=== PATIENT | female | born 1955 | race American Indian/Alaskan Native ===

== ENCOUNTER 2018-04-27 09:35 | Outpatient (REF) | payer MEDICAID, SELFPAY ==
[2018-04-27 19:29] LABS: Cholesterol 187 mg/dL (50-200); HDL Cholesterol 38 mg/dL (40-60); LDL CHOLESTEROL 127 mg/dL (<100); Triglyceride 194 mg/dL (30-150)
[2018-04-29 10:40] LABS: Thyroglobulin Antibody 252 U/mL (<61); Thyroperoxidase Antibody >1300 U/mL (<61)
== END 2018-04-27 09:36 ==
LOC: NCHCN 09:35
PROVIDERS: PCP Nurse Practitioner Family; Visit Provider Nurse Practitioner Family
DX: E78.5 Hyperlipidemia, unspecified (principal); E03.9 Hypothyroidism, unspecified
CPT/HCPCS: 80061; 83721; 86376

== ENCOUNTER 2018-07-02 09:20 | Outpatient (RCR) | payer SELFPAY ==
--- NOTE | 2018-07-03 15:43 | COCO.CNN ---
Primary Reason for Visit Insurance Referral to Care Coordination Referral to Care Coordination: No Referral to Services: No - Referral From Referral From: Self Care Plan - Plan of Care Assessment/Background: Pt will turn 63 in Oct and needed helpt with health benefits she onl make $684.00 per mo in Plan of Care: we filled out the 202med for extra help for medicare and the lss through social security for her rx coverage iI spoke with Misha and she stated that I should fax 202med after Jayant pt mailed the lss to yesterday she will contact me when she receives any info from or the state
== END 2018-07-31 23:59 | disposition home or self-care (01) ==
LOC: COCO 09:20
PROVIDERS: PCP Nurse Practitioner Family; Visit Provider Nurse Practitioner Family

== ENCOUNTER 2018-09-11 09:34 | Outpatient (REF) | payer MEDICAID, SELFPAY ==
[2018-09-11 19:47] LABS: FREE T4 1.57 ng/dL (0.76-1.46); TSH 0.05 uIU/mL (0.358-3.74)
[2018-09-11 20:08] LABS: T4 10.6 ug/dL (4.5-12.5)
[2018-09-13 16:39] LABS: T3,Free 3.7 pg/ml (2.8-5.3)
[2018-09-13 16:58] LABS: T3, Total 138 ng/dl (97-169)
== END 2018-09-11 09:54 ==
LOC: NCHCN 09:34
PROVIDERS: PCP Internal Medicine; Visit Provider Nurse Practitioner Family
DX: E03.9 Hypothyroidism, unspecified (principal)
CPT/HCPCS: 84436; 84439; 84443; 84480; 84481

== ENCOUNTER 2019-07-20 09:55 | Outpatient (REF) | payer MEDICARE, MEDICAID, SELFPAY ==
[2019-07-20 21:53] LABS: Anion Gap 12.2 mmol/L (3-11); BUN 19 mg/dL (7-18); CO2 24.8 mmol/L (21.0-32.0); CREATININE 0.73 mg/dL (0.55-1.02); Chloride 108 mmol/L (98-107); Glucose 101 mg/dL (74-106); Potassium 4.4 mmol/L (3.5-5.1); Sodium 145 mmol/L (136-145); TSH (W/Ref FT4) 0.23 uIU/mL (0.36-3.74)
[2019-07-20 22:32] LABS: FREE T4 1.34 ng/dL (0.76-1.46)
[2019-07-21 22:00] LABS: T3, Total 129 ng/dL (97-169)
[2019-07-22 04:44] LABS: Vitamin D 25 Total 35.7 ng/ml (30-100)
[2019-07-22 10:41] LABS: HBs Antibody, Quant <3.1 mIU/mL; Hepatitis B Surface Ab Negative (See Note)
[2019-07-22 11:24] LABS: Hep A Total Ab w Rflx IgM Positive (Negative)
[2019-07-22 11:54] LABS: Rubella IgG Ab (UVM) Positive (See Note)
[2019-07-22 13:00] LABS: Thyroglobulin Antibody 128.6 U/mL (<=60); Thyroperoxidase Antibody 1288 U/mL (<=60)
[2019-07-22 13:55] LABS: Hep A Antibody IgM Negative (Negative)
[2019-07-23 17:17] LABS: Measles (Rubeola), IgM Negative (Negative)
== END 2019-07-20 10:15 ==
LOC: NCHCN 09:55
PROVIDERS: PCP Internal Medicine; Visit Provider Nurse Practitioner Family
DX: E06.3 Autoimmune thyroiditis (principal); E55.9 Vitamin D deficiency, unspecified; I10 Essential (primary) hypertension; Z01.84 Encounter for antibody response examination; Z11.59 Encounter for screening for other viral diseases
CPT/HCPCS: 80048; 82306; 86376; 86706; 86709; 86765; 84439; 84443; 84480; 86762

== ENCOUNTER 2021-01-10 09:28 | Outpatient (REF) | payer MEDICARE, MEDICAID, SELFPAY ==
[2021-01-10 16:46] LABS: Anion Gap 7.2 mmol/L (3-11); BUN 29 mg/dL (7-18); CO2 29.8 mmol/L (21.0-32.0); CREATININE 0.7 mg/dL (0.55-1.02); Calcium 9.1 mg/dL (8.5-10.1); Calculated LDL 89 mg/dL (<100); Chloride 108 mmol/L (98-107); Cholesterol 190 mg/dL (<200); Glucose 113 mg/dL (74-106); HDL Cholesterol 29 mg/dL (40-60); Sodium 145 mmol/L (136-145); TSH (W/Ref FT4) 0.52 uIU/mL (0.36-3.74); Triglyceride 363 mg/dL (<150)
== END 2021-01-10 09:29 | disposition home or self-care (01) ==
LOC: NCHCN 09:28
PROVIDERS: PCP Internal Medicine; Visit Provider Nurse Practitioner Family
DX: E06.3 Autoimmune thyroiditis (principal); E78.5 Hyperlipidemia, unspecified; I10 Essential (primary) hypertension
CPT/HCPCS: 80048; 80061; 84443

== ENCOUNTER 2021-04-03 11:20 | Outpatient (REF) | payer MEDICARE, MEDICAID, SELFPAY ==
[2021-04-03 20:35] LABS: Iron 116 ug/dL (50-170); Total Iron Binding Capacity 408 ug/dL (250-450); Transferrin Sat 28 % (15-50)
[2021-04-03 21:00] LABS: ALT 54 U/L (14-59); AST 36 U/L (15-37); Albumin 4.1 g/dL (3.4-5.0); Alkaline Phosphatase 86 U/L (46-116); Anion Gap 10.3 mmol/L (3-11); BUN 14 mg/dL (7-18); Bilirubin, Total 0.5 mg/dL (0.2-1.0); CO2 25.7 mmol/L (21.0-32.0); CREATININE 0.7 mg/dL (0.55-1.02); Calcium 8.9 mg/dL (8.5-10.1); Chloride 107 mmol/L (98-107); Ferritin 55 ng/mL (8-252); Glucose 136 mg/dL (74-106); Potassium 3.9 mmol/L (3.5-5.1); Sodium 143 mmol/L (136-145); TSH 0.97 uIU/mL (0.36-3.74); Vitamin B12 254 pg/mL (193-986)
[2021-04-03 22:11] LABS: FREE T4 1.28 ng/dL (0.76-1.46)
[2021-04-04 16:25] LABS: T3, Total 135 ng/dL (97-169)
== END 2021-04-03 11:21 | disposition home or self-care (01) ==
LOC: NCHCN 11:20
PROVIDERS: PCP Internal Medicine; Visit Provider Physician Assistant
DX: E63.8 Other specified nutritional deficiencies (principal); E06.3 Autoimmune thyroiditis; I10 Essential (primary) hypertension; E78.5 Hyperlipidemia, unspecified; M79.7 Fibromyalgia; R89.9 Unspecified abnormal finding in specimens from other organs, systems and tissues; R05 Cough; R09.3 Abnormal sputum
CPT/HCPCS: 80053; 82607; 82728; 83540; 83550; 83735; 84439; 84443; 84480; 87070; 87205

== ENCOUNTER 2021-10-11 10:39 | Outpatient (REF) | payer MEDICARE, MEDICAID, SELFPAY ==
[2021-10-11 20:39] LABS: TSH (W/Ref FT4) 1.03 uIU/mL (0.36-3.74)
== END 2021-10-11 10:40 | disposition home or self-care (01) ==
LOC: NCHCN 10:39
PROVIDERS: PCP Internal Medicine; Visit Provider Physician Assistant
DX: E03.9 Hypothyroidism, unspecified (principal)
CPT/HCPCS: 84443

== ENCOUNTER 2022-09-03 09:01 | Outpatient (REF) | payer MEDICARE, MEDICAID, SELFPAY ==
[2022-09-03 20:30] LABS: ALT 53 U/L (14-59); AST 37 U/L (15-37); Albumin 4.3 g/dL (3.4-5.0); Alkaline Phosphatase 77 U/L (46-116); Anion Gap 6.7 mmol/L (3-11); BUN 22 mg/dL (7-18); Bilirubin, Total 0.4 mg/dL (0.2-1.0); CO2 29.3 mmol/L (21.0-32.0); CREATININE 0.8 mg/dL (0.55-1.02); Calcium 9.7 mg/dL (8.5-10.1); Calculated LDL 96 mg/dL (<100); Chloride 107 mmol/L (98-107); Cholesterol 204 mg/dL (<200); Estimated GFR 80.21 (mL/min/1.73m2); Glucose 105 mg/dL (74-106); HDL Cholesterol 35 mg/dL (40-60); Sodium 143 mmol/L (136-145); TSH 1.05 uIU/mL (0.36-3.74); Total Protein 7.5 g/dL (6.4-8.2); Triglyceride 368 mg/dL (<150)
== END 2022-09-03 09:02 | disposition home or self-care (01) ==
LOC: NCHCN 09:01
PROVIDERS: PCP Internal Medicine; Visit Provider Nurse Practitioner Family
DX: I10 Essential (primary) hypertension (principal); E78.1 Pure hyperglyceridemia; E04.1 Nontoxic single thyroid nodule
CPT/HCPCS: 80053; 80061; 84443

== ENCOUNTER 2022-12-31 09:18 | Outpatient (REF) | payer MEDICARE, MEDICAID, SELFPAY ==
--- OUTSIDE RECORDS SUMMARY | 2022-12-31 09:23 | XMS_ITS | Continuity of Care Document ---
Author Name Unknown Organization [facility] Address [address] [place] [address] Care Team Providers Care Decator Operator Name Role Phone Chemocurtis Maria Guadalupe Bipin Primary Care Physician Encounter [facility] Date(s): 09/07/22 - 09/07/22 [facility] [address] [place] [address] us Discharge Disposition: Home or Self Care Attending Physician: Aubrey Bazan MD Admitting Physician: Aubrey Bazan MD Allergies, Adverse Reactions, Alerts Substance Reaction Severity Status morphine Unknown Active sulfa drugs Unknown Active Functional Status 09/07/22 Family Member Travel History No recent t ravel Recent Travel History No recent travel Other exposure to Infectious Disease Non e Medications Bystolic 20 mg oral tablet 0 Refill(s) Start Date: 09/07/22 Status: Ordered levothyroxine 100 mcg =, 0 Refill(s) Start Date: 09/07/22 Status: Ordered omeprazole 20 mg =, 0 Refill(s) Start Date: 09/07/22 Status: Ordered Results Laboratory List Name Date CBC w/o Diff (CBC) 09/07/22 Basic Metabolic Panel (BMP) 09/07/22 Troponin-I 09/07/22 Most recent to oldest [Reference Range]: 1 WBC [5.0-10.0 x10^3/mcL] 6.0 x10^3/mcL (09/07/22 8:40 PM) RBC [4.1-5.3 x10^6/mcL] 4.7 x10^6/mcL (09/07/22 8:40 PM) BUN [7-18 mg/dL] 20 mg/dL *HI* (09/07/22 7:45 PM) Glucose Level [74-106 mg/dL] 121 mg/dL *HI* (09/07/22 7:45 PM) Potassium Level [3.5-5.1 mmol/L] 4.4 mmo l/L (09/07/22 7:45 PM) MCV [80.0-96.0] 89.4 (09/07/22 8:40 PM) MCHC [31.0-35.0 g/dL] 33.3 g/dL (09/07/22 8:40 PM) Troponin-I [0.0-51.4 pg/mL] 5.4 pg/mL (09/07/22 7:45 PM) Sodium Level [136-145 mmol/L] 142 mmol/L (09/07/22 7:45 PM) Hct [37.0-47.0 %] 42.0 % (09/07/22 8:40 PM) Calcium Level [8.5-10.1 mg/dL] 9.2 mg/dL (09/07/22 7:45 PM) MCH [26.0-32.0 pg] 29.8 pg (09/07/22 8:40 PM) Hgb [12.0-16.0 g/dL] 14.0 g/dL (09/07/22 8:40 PM) Platelets [130-450 x10^3/mcL] 212 x10^3/ mcL (09/07/22 8:40 PM) CO2 [21-32 mmol/L] 27 mmol/L (09/07/22 7:45 PM) eGFR Non-AA [>=60] 95 (09/07/22 7:45 PM) eGFR AA [>=60] 95 (09/07/22 7:45 PM) Chloride Level [98-107 mmol/L] 105 mmol/ L (09/07/22 7:45 PM) RDW-CV [11.7-17.0 %] 12.4 % (09/07/22 8:40 PM) Creatinine Level [0.55-1.02 mg/dL] 0.67 mg/dL (09/07/22 7:45 PM) Vital Signs Most recent to oldest [Reference Range]: 1 2 Temperature Temporal Artery [36-38 Deg C ] 36 Deg C (09/07/22 6:50 PM) Peripheral Pulse Rate [60-100 bpm] 62 bp m (09/07/22 8:50 PM) 67 bpm (09/07/22 6:50 PM) Respiratory Rate [12-24 br/min] 18 br/mi n (09/07/22 8:50 PM) 16 br/min (09/07/22 6:50 PM) Blood Pressure [90-140/60-90 mmHg] 172/7 0mmHg *HI* (09/07/22 8:50 PM) 191/74mmHg *HI* (09/07/22 6:50 PM) Weight Dosing 85.00 kg (09/07/22 6:59 PM) Weight Estimated 85.00 kg (09/07/22 6:50 PM) Height/Length Dosing 162.000 cm (09/07/22 6:59 PM) Height/Length Estimated 162.000 cm (09/07/22 6:50 PM) Social History Social History Type Response Tobacco Never tobacco user T obacco Use:. Sex Female Physician Emergency department Note * Aubrey Bazan MD: PERFORM Event Display: ED Note Physician Authored Date: CRISTAL VERONICA :1955 Age:66 years Sex:Female Visit Date:09/07/2022 Primary Care Physician: Maria Guadalupe Durant QC SCIENTIST HPI 66-year-old female with history of headaches and HTN presents for evaluation of poorly characterized dizziness that feels like mild instability as well as a mild headache in the setting of recently discontinuing amlodipine due to peripheral edema (that appears to be of attributed to her CCB), patient noted that her blood pressure following discontinuing amlodipine was 130/63 and earlier today [id number] (SBP, after this reading she is concerned about her blood pressure and presented to the ER for evaluation. 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 * Cardiac - patient denies chest pain, palpitations, jaw pain, nausea, and shortness of breath at rest or on exertion.?? * Medications -??Nebivolol ?? M/S/F/SocHx notable for: please see HPI; remainder reviewed with patient and in chart.? ROS: Negative constitutional, eye, cardiovascular, pulmonary, GI, , MSK, skin, neurologic, psychiatric, endocrine unless noted in the HPI. ?? Exam HR 67, BP 191/74, RR 16, T 36.0?C, SaO2 98 % on room air. Gen:??Pleasant, non-toxic appearing, resting comfortably. HEENT: NC, AT, PEERL, EOMI. Resp: Clear to auscultation bilaterally, normal work of breathing, no accessory muscle usage. Card: Regular rate and rhythm with no murmurs, rubs, or gallops, extremities warm and well perfused.?? GI: Non-tender to palpation throughout all quadrants, non-distended, no rebound or guarding. : No suprapubic tenderness to palpation.No CVA tenderness to percussion bilaterally.Deferred MSK: No visible deformities, strength and tone without visually appreciable deficit. Skin: Normal color with no visible lesions. Neuro: alert and oriented?3, no facial asymmetry, no gaze preference, no slurring of speech. CN II-III: pupils equal and reactive (3->2mm bilaterally); III, IV, : EOMI, V1-V3: sensation to touch bilaterally intact; VII: no facial asymmetry (frown / smile); VIII: no nystagmus; X: phonationintact, uvula midline; XI: trapezius 5/5 bilaterally, XII: tongue midline. Cerebellar: no pronator drift, wmelax-ut-girh testing without dysmetria bilaterally, heel to beltran without dysmetria bilaterally.??Gait - patient with a normal narrow based nonantalgic gait. No instability. Negative Romberg. Psych: mildly anxious mood and affect. ?? Imaging EKG: SR 63 bpm, no VT segment depressions, QRS 95 msec, no ST segment elevations, nonspecific depressions in aVF, V3-V6, no hyperacute T waves or discordant T wave inversions, QTc 452 ms. ?? CXR: pending. ?? Labs WBC 6.0, Hb 14.0, sodium 142, potassium 4.4, glucose 121, creatinine 0.67, troponin 5.4. ?? MDM Previous chart, nursing note, labs, imaging, and vitals reviewed.?? A:??66-year-old female with history of headaches and HTN presents for evaluation of poorly characterized dizziness that feels like mild instability as well as a mild headache in the setting of recently discontinuing amlodipine due to peripheral edema (that appears to be of attributed to her CCB), patient noted that her blood pressure following discontinuing amlodipine was 130/63 and earlier todaywas 145 (SBP, after this reading she is concerned about her blood pressure and presented to the ER for evaluation. ?? DDx: hypertensive urgency, hypertensive emergency, asymptomatic hypertension, migraine / tension headache, cluster headache, sentinel bleed/SAH, infection (CIGAR MACHINE FEEDER vs HARPER secondary to non-CIGAR MACHINE FEEDER focal infection), tumor/mass effect, hypertensive encephalopathy, glaucoma or iritis, idiopathic intracranial hyp ertension, cavernous sinus thrombosis, temporal arteritis ?? Evaluation: patient is well-appearing, given the mildness of the headache, gradual onset, a historyof recurrent headaches as well as resolution with 1 L NS and 15 mg Toradol (patient had resolution of headache before she received 10 mg IV Compazine). Suspect that the patient is having a mild headache that is not secondary to her hypertension (her blood pressure??at home during symptom onset was??also within the brains autoregulatory zone and given her baseline SBP of ~140 her autoregulatory zone may be slightly elevated). No high-risk features with regards the patient???s headache were identified, no identifiable risk factors for neck trauma, no features suggestive of tumor or mass effect,no features suggestive of glaucoma, iritis, idiopathic intracranial hypertension, no risk factors identified for cavernous sinus thrombosis, and the patient is without temporal pain, jaw pain/collocation, or vision changes, strongly suggesting against temporal arteritis. An EKG was obtained by nursing protocol, this was reviewed and within acceptable limits. Laboratory studies within acceptable limits, troponin and creatinine normal. Patient wishes to be discharged prior to chest x-ray, given the totality of evidence, this appears to be low yield study and will not be obtained. ?? Disposition: discharged with PCP follow-up recommended. ?? Impression: asymptomatic hypertension, headache Electronically Signed on 09/07/22 08:52 PM Aubrey Bazan MD Emergency department Discharge instructions * Aubrey Bazan MD: PERFORM Event Display: ED Discharge Information Authored Date: [id number] CRISTAL VERONICA :1955 Age:66 years Sex:Female Visit Date:09/07/2022 Primary Care Physician: Maria Guadalupe Durant QC SCIENTIST Discharge Instructions We would like to thank you for allowing us to assist you with your healthcare needs. The following includes patient education materials and information regarding your injury/illness. ?? You were seen at [facility] for evaluation for evaluation of??.??Please read and followall of the instructions below. ?? Please follow up with your primary care physician??as needed. When calling for follow-up care, please make the office aware that this follow-up is from your recent emergency room visit.? Your care today was limited to identifying and treating emergent medical problems only. Many peoplehave subtle differences in their test results that require follow up with their outpatient physician(s) to correctly determine if this represents a normal variation or concerning abnormality with respect to your specific health.??The care given to you today was limited to identifying and treating emergent medical problems - you need to request a copy of all of your medical records from today's visit and follow up with your outpatient physician(s) to review both today's visit and your overall health. If you have any new symptoms or if you are at all concerned about your health please return immediately to the emergency department. ?? Prescriptions: If you are uninsured or have financial difficulties with filling your prescription(s), you may consider using a free pharmacy discount service such as [employer] ([employer]) or [employer] ([employer]). These services allow you to search for a medication on your phone (or computer) and obtain a coupon that usually has a significant discount from the list duncan at a pharmacy. Your physician does not have a financial relationship with either of these services. You may also wish to speak with your physician to determine if lower cost prescriptions are possible. ?? High Blood Pressure (Hypertension) When you were in the emergency department you had an abnormally high blood pressure. High blood pressure can be without symptoms. However high blood pressure can lead to many medical problems including kidney disease, strokes, and heart attacks. Your blood pressure may have been elevated due to pain or the stress of being in the emergency department, however half of people with an elevated blood pressure in the emergency department have intermission coordinator problems with high blood pressure.? Please see your primary care physician in 2-3 days for a repeat check of your blood pressure. This may help prevent many health serious problems in the future.? Please return to the emergency department if you develop any of the following: chest pain, shortness of breath, new or severe headache, changes in vision or hearing, weakness, or if you are otherwiseconcerned about your health. ?? Headache You were seen in the emergency department for evaluation and treatment of a headache. There are many causes for headaches. Most are painful but do not threaten your health. However there are some types of headaches that can be life threatening. Please return to the emergency department if you develop any of the following: * Your headache worsens, becomes severe, or you have nausea or vomiting. * Fever greater than 100.5 degrees Fahrenheit. * You have neck stiffness. * Changes in vision or hearing. * You have new weakness, numbness, or decreased sensation. * You have dizziness or difficulty walking * You feel faint or like you will pass out. ?? Please follow up with your primary care doctor if your symptoms continue or do not improve. ?? If you have recurrent headaches, your primary care physician may be able to prescribe medications that abort headaches or refer you to a neurologist for further evaluation and work up of your headaches.? Home care instructions:?? * Keep all follow-up appointments with your caregiver or any specialist referral.?? * Lie down in a dark, quiet room when you have a headache.? Keep a headache journal to find out what may trigger your migraine headaches. For example, write down:?? * What you eat and drink.?? * How much sleep you get.?? * Any change to your diet or medicines.?? * Try massage or other relaxation techniques.?? * Put ice packs or heat on the head and neck. Use these 3 to 4 times per day for 15 to 20 minutes each time, or as needed.?? * Limit stress.?? * Sit up straight, and do not tense your muscles.?? * Quit smoking if you smoke.?? * Limit alcohol use.?? * Decrease the amount of caffeine you drink, or stop drinking caffeine.?? * Eat and sleep on a regular schedule.?? * Get 7 to 9 hours of sleep, or as recommended by your caregiver.?? * Keep lights dim if bright lights bother you and make your headaches worse.? You make take over the counter Acetaminophen (Tylenol) and Ibuprofen (Motrin or Aleve) as directed below for relief of pain.?? *??Take 600 mg of ibuprofen (three 200 mg tablets) with a glass of water every 6-8 hours as needed for pain or fever. Do not take if , allergic to ibuprofen, or if you have severe kidney disease. * Take 1,000 mg of acetaminophen (two 500 mg tablets) with a glass of water every 6-8 hours as needed for pain. Do not take up allergic to acetaminophen. If you have liver disease do not take more than 2000 mg in 24 hours. * You can take these medications at the same time or on separate schedules.?? * Do not take for more than 10 days. * Do not take with alcohol or other acetaminophen containing medications.?? * This medication may cause a mildly upset stomach, if so take it with a small snack. Stop taking it if you have persistent abdominal pain, heartburn, or any stomach pain. Do not take this medicationif you have known ulcers.?? * Please read the warnings at the end of this document regarding these medications.? IBUPROFEN WARNING: This drug may infrequently cause serious (rarely fatal) bleeding from the stomach or intestines. Also, related drugs rarely have caused blood clots to form, resulting in heart attacks and strokes. This medication might also rarely cause similar problems. Talk to your doctor or pharmacist about the benefits and risks of treatment, as well as other possible medication choices. Ifyou notice any of the following rare but very serious side effects, stop taking ibuprofen and seek immediate medical attention: black stools, persistent stomach/abdominal pain, vomit that looks like coffee grounds, chest pain, weakness on one side of the body, sudden vision changes, slurred speech.? IBUPROFEN SIDE EFFECTS: Upset stomach, nausea, vomiting, heartburn, headache, diarrhea, constipation, drowsiness, and dizziness may occur. If any of these effects persist or worsen, notify your doctor or pharmacist promptly. If your doctor has directed you to use this medication, remember that he or she has judged that the benefit to you is greater than the risk of side effects. Many people usingthis medication do not have serious side effects. Tell your doctor immediately if any of these serious side effects occur: stomach pain, swelling of the hands or feet, sudden or unexplained weight gain, ringing in the ears (tinnitus). Tell your doctor immediately if any of these unlikely but serious side effects occur: vision changes, rapid or pounding heartbeat, easy bruising or bleeding, difficult/painful swallowing. Tell your doctor immediately if any of these highly unlikely but very serious side effects occur: change in amount of urine, severe headache, very stiff neck, mental/mood changes, persistent sore throat or fever. This drug may rarely cause serious (possibly fatal) liver disease. If you notice any of the following highly unlikely but very serious side effects, stop taking ibuprofen and consult your doctor or pharmacist immediately: yellowing eyes and skin, dark urine, unusual/extreme tiredness. An allergic reaction to this drug is unlikely, but seek immediate medical attention if it occurs. Symptoms of an allergic reaction include: rash, itching/swelling (especially ofthe face/tongue/throat), severe dizziness, trouble breathing. This is not a complete list of possible side effects.? ACETAMINOPHEN SIDE EFFECTS: This drug usually has no side effects. If you do not have liver problems, the maximum dose of acetaminophen for adults is 4 grams per day (4000 milligrams). Taking more than the maximum daily amount may cause serious (possibly fatal) liver damage. Get medical help right away if you have any of the following symptoms of liver damage: persistent nausea/vomiting, extreme tiredness, stomach/abdominal pain, yellowing eyes/skin, dark urine. If you have liver problems, consult your doctor or pharmacist for a safe dosage of this medication. A very serious allergic reactionto this drug is rare. However, get medical help right away if you notice any symptoms of a serious allergic reaction, including: rash, itching/swelling (especially of the face/tongue/throat), severe dizziness, trouble breathing. This is not a complete list of possible side effects. If you notice other effects not listed above, contact your doctor or pharmacist. ?? DRUG INTERACTIONS: Your healthcare professionals (e.g., doctor or pharmacist) may already be aware of any possible drug interactions and may be monitoring you for it. Do not start, stop or change thedosage of any medicine before checking with them first. This drug should not be used with the following medications because very serious interactions may occur: cidofovir, ketorolac. If you are currently using any of these medications listed above, tell your doctor or pharmacist before starting ibuprofen. Before using this medication, tell your doctor or pharmacist of all prescription and nonprescription/herbal products you may use, especially of: anti-platelet drugs (e.g., cilostazol, clopidogrel), oral bisphosphonates (e.g., alendronate), other medications for arthritis (e.g., aspirin, methotrexate), blood thinners (e.g., enoxaparin, heparin, warfarin), corticosteroids (e.g., prednisone), cyclosporine, desmopressin, high blood pressure drugs (including MELANY inhibitors such as captopril, angiotensin II receptor antagonists such as losartan, and beta-blockers such as metoprolol), lithium, pemetrexed, water pills (diuretics such as furosemide, hydrochlorothiazide, triamterene). Check all prescription and nonprescription medicine labels carefully for other pain/fever drugs (NSAIDs such as aspirin, celecoxib, naproxen). These drugs are similar to ibuprofen, so taking one of these drugs while also taking ibuprofen may increase your risk of side effects. Consult your doctor or pharmacist for more details. However, if your doctor has prescribed low doses of aspirin to prevent heart attack or stroke (usually at dosages of 81-325 milligrams a day), you should continue to take theaspirin. Daily use of ibuprofen may decrease aspirin's ability to prevent heart attack/stroke. Talkto your doctor about using a different medication (e.g., acetaminophen) to treat pain/fever. If youmust take ibuprofen, talk to your doctor about possibly taking immediate-release aspirin (not enteric-coated) while also taking the ibuprofen dose apart from your aspirin dose. Do not increase your daily dose of aspirin or change the way you take aspirin/other medications without your doctor's approval. This document does not contain all possible interactions. Therefore, before using this product, tell your doctor or pharmacist of all the products you use. Keep a list of all your medications with you, and share the list with your doctor and pharmacist. ?? Discharge Vitals Temperature??(Temporal Artery) 96.8 ??F (36 ??C) Heart Rate??(Peripheral) 67 Respiratory Rate?? 16 Blood Pressure?? 191/74?? Height?? 63.78 in (162.000 cm) Weight??(Estimated) 187.42 lb (85.00 kg) Allergies morphine sulfa drugs You were treated today on an emergency basis; it may be chu to contact your primary care provider to notify them of your visit today. You may have been referred to your regular doctor or a specialist, please follow up as instructed. If your condition worsens or you can't get in to see the doctor, contact the Emergency Department. Medications What How Much When Instructions Next Dose Unchanged levothyroxine 100 Micrograms Unchanged nebivolol (Bystolic 20 mg oral tablet) Unchanged omeprazole 20 Milligrams Tests Performed Medications and Immunizations Administered Given !-Compazine, 10 mg, IV Push NS bolus, 1000 mL, IV Piggyback Toradol, 15 mg, IV Push Lab Test Name Test Result Date/Time WBC 6.0 x10^3/mcL 09/07/2022 20:40 EST RBC 4.7 x10^6/mcL 09/07/2022 20:40 EST Hgb 14.0 g/dL 09/07/2022 20:40 EST Hct 42.0 % 09/07/2022 20:40 EST MCV 89.4 09/07/2022 20:40 EST MCH 29.8 pg 09/07/2022 20:40 EST MCHC 33.3 g/dL 09/07/2022 20:40 EST RDW-CV 12.4 % 09/07/2022 20:40 EST Platelets 212 x10^3/mcL 09/07/2022 20:40 EST Sodium Level 142 mmol/L 09/07/2022 19:45 EST Potassium Level 4.4 mmol/L 09/07/2022 19:45 EST Chloride Level 105 mmol/L 09/07/2022 19:45 EST CO2 27 mmol/L 09/07/2022 19:45 EST BUN 20 mg/dL 09/07/2022 19:45 EST Glucose Level 121 mg/dL 09/07/2022 19:45 EST Creatinine Level 0.67 mg/dL 09/07/2022 19:45 EST eGFR AA 95 09/07/2022 19:45 EST eGFR Non-AA 95 09/07/2022 19:45 EST Calcium Level 9.2 mg/dL 09/07/2022 19:45 EST Troponin-I 5.4 pg/mL 09/07/2022 19:45 EST Patient/Fire Inspector Signature Patient Name:CRISTAL VERONICA I have received this information and my questions have been answered. Patient/Fire Inspector Name: Patient/Fire Inspector Signature: Relationship to Patient: Witness Name/Signature: Date: Electronically Signed on: 09/07/2022 20:52 ESTSigned by:CHASE Patient Care team information Personnel Name: Maria Guadalupe Durant NP Address: Address: [address] [place] [id number]
[2022-12-31 19:12] LABS: Calculated LDL 95 mg/dL (<100); Cholesterol 177 mg/dL (<200); HDL Cholesterol 36 mg/dL (40-60); Triglyceride 231 mg/dL (<150)
== END 2022-12-31 09:19 | disposition home or self-care (01) ==
LOC: NCHCN 09:18
PROVIDERS: PCP Internal Medicine; Visit Provider Nurse Practitioner Family
DX: E78.5 Hyperlipidemia, unspecified (principal)
CPT/HCPCS: 80061

== ENCOUNTER 2023-12-03 09:25 | Outpatient (REF) | payer MEDICARE, MEDICAID, SELFPAY ==
[2023-12-03 21:07] LABS: Anion Gap 9.8 mmol/L (3-11); BUN 14 mg/dL (7-18); CO2 27.2 mmol/L (21.0-32.0); CREATININE 0.9 mg/dL (0.55-1.02); Calcium 8.9 mg/dL (8.5-10.1); Chloride 107 mmol/L (98-107); Estimated GFR 68.77 (mL/min/1.73m2); Glucose 99 mg/dL (74-106); Potassium 4.3 mmol/L (3.5-5.1); Sodium 144 mmol/L (136-145); TSH 1.47 uIU/Ml (0.36-3.74)
== END 2023-12-03 09:26 | disposition home or self-care (01) ==
LOC: NCHCN 09:25
PROVIDERS: PCP Internal Medicine; Visit Provider Nurse Practitioner Family
DX: I10 Essential (primary) hypertension (principal); E03.9 Hypothyroidism, unspecified
CPT/HCPCS: 80048; 84443

== ENCOUNTER 2024-03-25 12:45 | Outpatient (REF) | payer MEDICARE, MEDICAID, SELFPAY ==
--- NOTE | 2024-03-24 10:55 | SKI_PTH ---
PATIENT: Tami Calabrese LOC: [facility] U#:[id number] AGE/SX: 68/F ROOM: RE03/25/[address]: Jumana Durant : 1955 BED: DIS: 03/25/2024 SPEC #: [id number] RECD: 03/25/24 12:51 STATUS: KIYA REQ #: [id number] KYUNG: 03/24/24 10:[address] RECD BY: Sasha Pickett ENTERED: 03/25/24 12:52 SP TYPE: [place] DR: Margarito Cantrell Tissues: 1 - SKIN BIOPSY(SHAVE/PUNCH) Procedures: SKIN LEVEL 4 Comments: [id number]
== END 2024-03-25 12:46 | disposition home or self-care (01) ==
LOC: LBN 12:45
PROVIDERS: PCP Internal Medicine; Visit Provider Nurse Practitioner Family
DX: D23.72 Other benign neoplasm of skin of left lower limb, including hip (principal); L98.8 Other specified disorders of the skin and subcutaneous tissue
CPT/HCPCS: 88305

== ENCOUNTER 2024-09-27 14:46 | Outpatient (REF) | payer MEDICARE, MEDICAID, SELFPAY ==
[2024-09-27 19:10] LABS: Bilirubin Negative (Negative); Blood Trace-intact (Negative); Clarity Clear (Clear); Glucose Negative (Negative); Ketones Negative (Negative); Leukocyte Esterase Negative (Negative); Nitrite Negative (Negative); Urobilinogen 0.2 mg/dL (Up to 0.2)
[2024-09-27 19:16] LABS: Bacteria Negative HPF (Negative); C & S Indicated? No; Crystals Negative HPF (Negative); Epithelial Cells Rare HPF (Negative); Mucus Negative (Negative); WBC 0-2 HPF (0-5)
== END 2024-09-27 14:47 | disposition home or self-care (01) ==
LOC: NCHCN 14:46
PROVIDERS: PCP Internal Medicine; Visit Provider Nurse Practitioner Family
DX: R10.9 Unspecified abdominal pain (principal); R31.9 Hematuria, unspecified
CPT/HCPCS: 81003; 81015

== ENCOUNTER 2025-02-28 10:04 | Outpatient (REF) | payer MEDICARE, MEDICAID, SELFPAY ==
--- NOTE | 2025-02-28 09:00 | VUL_PTH ---
PATIENT: Tami Calabrese LOC: [facility] U#:[id number] AGE/SX: 69/F ROOM: RE02/28/[address]: Riya Diaz DO : 1955 BED: DIS: 02/28/2025 SPEC #: [id number] RECD: 02/28/25 13:05 STATUS: KIYA REQ #: [id number] KYUNG: 02/28/25 09:[address]: Riya Diaz DEPT: Surgical Specimen RECD BY: Sasha Pickett ENTERED: 02/28/25 13:06 SP TYPE: VUL OTHR DR: Margarito Cantrell Tissues: 1 - VULVA BIOPSY Procedures: GROSS AND MICRO LEVEL 4 Comments: [id number]
== END 2025-02-28 10:05 | disposition home or self-care (01) ==
LOC: LBN 10:04
PROVIDERS: PCP Internal Medicine; Visit Provider Obstetrics & Gynecology
DX: N90.89 Other specified noninflammatory disorders of vulva and perineum (principal)
CPT/HCPCS: 88305